=== PATIENT | male | born 1970 | race Caucasian/White ===

== ENCOUNTER 2017-12-08 16:25 | Emergency (ER) | payer OTHER ==
[~2017-12-08] VITALS: Ht 185.4 cm; Wt 98.0 kg
[2017-12-08 16:27] VITALS: BP 166/91; PULSE 78; RESP 22; TEMP 97.8; O2SAT 97
[2017-12-08] MEDS ORDERED: POTA1080 PO (16:57)
[2017-12-08] MEDS ORDERED: FLUT1SPR5 EACH NARE (16:57)
[2017-12-08] MEDS ORDERED: IBUP1TAB7 PO (16:57)
[2017-12-08] MEDS ORDERED: MONT10TA2 PO (16:57)
[2017-12-08] MEDS ORDERED: LISI-515 PO (16:57)
[2017-12-08] MEDS ORDERED: TRAM50TA PO (16:57)
[2017-12-08 17:06] LABS: AUTOMATED NEUTROPHIL # 6.9 TH/MM3 (1.8-7.7); BASOPHIL % 0.4 % (0.0-2.0); EOSINOPHIL # 0.2 TH/MM3 (0-0.4); EOSINOPHIL % 1.7 % (0.0-4.0); HEMATOCRIT 43.3 % (39.0-51.0); HEMOGLOBIN 14.8 GM/DL (13.0-17.0); LYMPHOCYTE # 1.7 TH/MM3 (1.0-4.8); MEAN CELL VOLUME 87.4 FL (80.0-100.0); MEAN CORPUSCULAR HEMOGLOBIN 29.9 PG (27.0-34.0); MEAN CORPUSCULAR HGB CONC 34.2 % (32.0-36.0); MEAN PLATELET VOLUME 7.9 FL (7.0-11.0); MONO % 5.9 % (0.0-8.0); MONOCYTE # 0.6 TH/MM3 (0-0.9); PLATELET COUNT 207 TH/MM3 (150-450); RED BLOOD COUNT 4.95 MIL/MM3 (4.50-5.90); RED CELL DISTRIBUTION WIDTH 13.6 % (11.6-17.2); WHITE BLOOD COUNT 9.3 TH/MM3 (4.0-11.0)
--- NOTE | 2017-12-08 17:06 | PD ---
HPI Chief Complaint: Abnormal Results Time Seen by Provider: 16:43 Travel History International Travel<30 days: No Contact w/Intl Traveler<30days: No Traveled to known affect area: No History of Present Illness HPI This is a 46-year-old male who presents to the emergency department with swelling of his left calf, constant, moderate severity, worsening ever since mid November when he sustained a tibial plateau fracture. He has been following with an orthopedic doctor who noted how swollen his leg was today and referred him for an ultrasound. His ultrasound demonstrated occlusive thrombus in the left popliteal and left peroneal veins with nonocclusive thrombus in the left posterior tibial vein. Patient denies any chest pain or trouble breathing. PFSH Past Medical History Cardiovascular Problems: Yes Hypertension: Yes Kidney Stones: Yes Past Surgical History Other Surgery: Yes (kindey stones, melanoma on the back ) Social History Alcohol Use: No Tobacco Use: No Substance Use: No Allergies-Medications (Allergen,Severity, Reaction): Coded Allergies: No Known Allergies (Unverified , 12/08/17) Reported Meds & Prescriptions Reported Meds & Active Scripts Active Reported Ibuprofen 800 Mg Tab 800 Mg PO Q8H PRN Tramadol (Tramadol HCl) 50 Mg Tab 50 Mg PO BID PRN Lisinopril 20 Mg Tab 20 Mg PO DAILY Potassium Citrate ER 10 Meq (1080 Mg) Tab 10 Meq PO TID Singulair (Montelukast Sodium) 10 Mg Tab 10 Mg PO HS Flonase Nasal [place] (Fluticasone Nasal [place]) 50 Mcg/Act [place] 50 Mcg EACH NARE DAILY Review of Systems Except as stated in HPI: all other systems reviewed are Neg Physical Exam Narrative GENERAL:Well appearing, no acute distress SKIN: Focused skin assessment warm and dry. HEAD: Atraumatic. Normocephalic. EYES: Pupils equal and round. No injection or drainage. ENT: Moist mucous membranes NECK: Trachea midline. CARDIOVASCULAR: Regular rate and rhythm. No murmur appreciated. 2+ left DP pulse RESPIRATORY: Clear to auscultation. Breath sounds equal bilaterally. GASTROINTESTINAL: Abdomen soft, non-tender, nondistended. MUSCULOSKELETAL: Swelling of the left calf NEUROLOGICAL: Awake and alert. No obvious cranial nerve deficits. PSYCHIATRIC: Appropriate mood and affect; insight and judgment normal. Data Data Last Documented VS Vital Signs Date Time Temp Pulse Resp B/P (MAP) Pulse Ox O2 Delivery O2 Flow Rate FiO2 12/08/17 16:27 97.8 78 22 166/91 (116) 97 Orders Orders Complete Blood Count With Diff (12/08/17 16:51) Comprehensive Metabolic Panel (12/08/17 16:51) Prothrombin Time / Inr (Pt) (12/08/17 16:51) Act Partial Throm Time (Ptt) (12/08/17 16:51) Labs Laboratory Tests Test 12/08/17 16:55 White Blood Count 9.3 TH/MM3 Red Blood Count 4.95 MIL/MM3 Hemoglobin 14.8 GM/DL Hematocrit 43.3 % Mean Corpuscular Volume 87.4 FL Mean Corpuscular Hemoglobin 29.9 PG Mean Corpuscular Hemoglobin Concent 34.2 % Red Cell Distribution Width 13.6 % Platelet Count 207 TH/MM3 Mean Platelet Volume 7.9 FL Neutrophils (%) (Auto) 74.0 % Lymphocytes (%) (Auto) 18.0 % Monocytes (%) (Auto) 5.9 % Eosinophils (%) (Auto) 1.7 % Basophils (%) (Auto) 0.4 % Neutrophils # (Auto) 6.9 TH/MM3 Lymphocytes # (Auto) 1.7 TH/MM3 Monocytes # (Auto) 0.6 TH/MM3 Eosinophils # (Auto) 0.2 TH/MM3 Basophils # (Auto) 0.0 TH/MM3 CBC Comment DIFF FINAL Differential Comment Prothrombin Time 10.4 SEC Prothromb Time International Ratio 1.0 RATIO Activated Partial Thromboplast Time 25.3 SEC Blood Urea Nitrogen 13 MG/DL Creatinine 1.17 MG/DL Random Glucose 89 MG/DL Total Protein 7.6 GM/DL Albumin 3.9 GM/DL Calcium Level 9.0 MG/DL Alkaline Phosphatase 110 U/L Aspartate Amino Transf (AST/SGOT) 24 U/L Alanine Aminotransferase (ALT/SGPT) 27 U/L Total Bilirubin 0.7 MG/DL Sodium Level 142 MEQ/L Potassium Level 3.7 MEQ/L Chloride Level 109 MEQ/L Carbon Dioxide Level 25.1 MEQ/L Anion Gap 8 MEQ/L Estimat Glomerular Filtration Rate 67 ML/MIN MDM Medical Decision Making Medical Screen Exam Complete: Yes Emergency Medical Condition: Yes Interpretation(s) no leukocytosis electrolytes within normal limits coags are reassuring Differential Diagnosis dvt Narrative Course This is a 46-year-old male who was diagnosed outside radiology facility with occlusive thrombus in the left popliteal and peroneal vein and nonocclusive thrombus in the left posterior tibial vein. Labs are all reassuring. Patient will be started on Xarelto and will follow up with his primary care physician. He has no signs or symptoms of pulmonary embolism. Diagnosis Primary Impression: DVT (deep venous thrombosis) Qualified Codes: I82.432 - Acute embolism and thrombosis of left popliteal vein Patient Instructions: General Instructions Additional Instructions: If you develop chest pain, trouble breathing, numbness or weakness in your leg return to the emergency department. Take Xarelto as prescribed. Follow-up with your primary care physician. Avoid any dangerous activities during which you could be injured as Xarelto as a blood thinner. Med/Other Pt SpecificInfo: Prescription(s) given Scripts Rivaroxaban (Xarelto) 15 Mg Tab 15 MG PO Q12HR for Blood Clot Prevention for 21 Days, TAB 0 Refills Prov: Lisa Lacy MD 12/08/17 Disposition: 01 DISCHARGE HOME Condition: Stable Lisa Lacy MD December 08, 2017 17:06
[2017-12-08 17:19] LABS: PROTHROMBIN TIME - PATIENT 10.4 SEC (9.8-11.6)
[2017-12-08 17:25] LABS: ALBUMIN 3.9 GM/DL (3.4-5.0); AST (GOT) 24 U/L (15-37); BICARBONATE 25.1 MEQ/L (21.0-32.0); BLOOD UREA NITROGEN 13 MG/DL (7-18); CHLORIDE 109 MEQ/L (98-107); CREATININE 1.17 MG/DL (0.60-1.30); GLOMERULAR FILTRATION RATE 67 ML/MIN (>89); GLUCOSE,RANDOM 89 MG/DL (74-106); SODIUM (NA) 142 MEQ/L (136-145)
[2017-12-08 17:29] LABS: ALKALINE PHOSPHATASE 110 U/L (45-117); ALT (GPT) 27 U/L (12-78); TOTAL BILIRUBIN ADULT 0.7 MG/DL (0.2-1.0); TOTAL PROTEIN 7.6 GM/DL (6.4-8.2)
[2017-12-08] MEDS ORDERED: XARE15TA PO (18:07)
[2017-12-08] MEDS ORDERED: RIVAROXABAN 15 MG TAB PO ONE (18:15)
== END 2017-12-08 18:45 | disposition home or self-care (01) ==
LOC: NEPC 16:25
DX: I82.432 Acute embolism and thrombosis of left popliteal vein (principal); I10 Essential (primary) hypertension; Z87.442 Personal history of urinary calculi; Z79.899 Other long term (current) drug therapy
CPT/HCPCS: 80053; 85025; 85610; 85730; 99283